=== PATIENT | male | born 1965 | race Caucasian/White ===

== ENCOUNTER 2020-06-04 10:10 | Outpatient (REF) | payer BC, SELFPAY ==
--- NOTE | 2020-06-04 10:15 | XR_ITS ---
EXAMINATION: XR SHOULDER, RIGHT CLINICAL INFORMATION: Right shoulder pain COMPARISON: None TECHNIQUE: Right shoulder is imaged in 3 views. FINDINGS: There is no fracture, dislocation, destructive process. There are degenerative changes acromioclavicular joint. The acromioclavicular alignment is normal. The glenohumeral joint is unremarkable. There is calcification adjacent to the greater tuberosity consistent with calcific tendinosis distal rotator cuff, likely infraspinatus. XR/XR shoulder RT min 2V IMPRESSION: 1. Calcific tendinosis rotator cuff. 2. Degenerative changes acromioclavicular joint.
== END 2020-06-04 10:11 | disposition home or self-care (01) ==
LOC: HO.HMGCX 10:10
PROVIDERS: PCP Nurse Practitioner Family; Visit Provider Nurse Practitioner Family
DX: M19.021 Primary osteoarthritis, right elbow (principal)
CPT/HCPCS: 73030

== ENCOUNTER 2020-06-22 07:48 | Outpatient (REF) | payer BC, SELFPAY ==
--- NOTE | ~2020-06-22 | XR_ITS ---
EXAMINATION: XR ELBOW, RIGHT CLINICAL INFORMATION: Pain COMPARISON: None TECHNIQUE: AP, lateral, and oblique views of the right elbow. FINDINGS: No definite acute fracture or dislocation is evident. There is evidence of an old radial head fracture. There is also noted to be a large 1.9 x 1.0 bony density about the anterior elbow joint with adjacent marginal spurring of the joint. This is likely sequela of fracture such as traumatic solitary joint synovial osteochondroma. XR/XR elbow RT min 3V IMPRESSION: No acute fracture or dislocation of the right elbow. Appearance of posttraumatic changes.
== END 2020-06-22 07:49 | disposition home or self-care (01) ==
LOC: HO.HOSX 07:48
PROVIDERS: PCP Nurse Practitioner Family; Visit Provider Orthopaedic Surgery
DX: M89.8X1 Other specified disorders of bone, shoulder (principal); M54.12 Radiculopathy, cervical region; M19.021 Primary osteoarthritis, right elbow
CPT/HCPCS: 73080

== ENCOUNTER → 2020-06-28 08:01 | Outpatient (BNVA) | payer BC, SELFPAY | PROVIDERS: PCP Nurse Practitioner Family; Visit Provider Anesthesiology ==

== ENCOUNTER 2020-07-06 08:44 | Outpatient (RCR) | payer BC, SELFPAY | END 2020-09-17 16:12 | disposition other institution (70) | LOC: HO.OT 08:44 | PROVIDERS: PCP Nurse Practitioner Family; Visit Provider Anesthesiology | DX: M19.021 Primary osteoarthritis, right elbow (principal) | CPT/HCPCS: 97014; 97167 ==

== ENCOUNTER 2024-07-04 08:31 | Outpatient (AMB) | payer BC, SELFPAY ==
--- NOTE | 2024-07-04 09:01 | AM.OFFWIN_ITS ---
Intake Vital Signs 07/04/24 09:03 Height 5 ft 7 in Weight 172 lb BMI 26.9 BP 136/90 H Blood Pressure Location Lt brachial Position Sitting Pulse 74 Pulse Source Pulse Oximeter Pulse Oximetry (%) 94 Oxygen Delivery Method Room Air Intake Visit Reasons: EP Boil back side Intake Note: Patient here for boil on back that has been present for about 1 week. Patient Tobacco Use Status: Former Tobacco user Allergies No Known Allergies Allergy (Verified 07/04/24 09:04) Do you need a note to return to daycare/school/sports/work: No HPI HPI Comments History of Present Illness Details History of Present Illness - The patient is a 59 year old male pres enting with a boil on his lower left buttock - Present for nearly a week, this boil i s painful and has not drained despite attempts with water soaking. - Approximately a year and a half ago, t he patient had a similar incident in the same region, which required two rounds of Keflex for resolution. - The patient emphasizes no known histor y of MRSA and desires antibiotic treatment for quicker resolution of the current boil. - He refuses I&D Physical Exam General: Cooperative, healthy appearing, comfortable, no acute distress and well developed Orientation: Patient oriented x3 Limitations: No limitations Head: Normal to inspection Ears: Hearing grossly normal bilaterally Nose: Normal Nxternal nose present Face and sinus: ormal facial exam Eyes: Appearance normal, both eyes and all related structures Neck: Normal visual inspection and Yes full ROM Respiratory: Normal respiratory effort and able to speak in complete sentences. Skin: 0.50 cm round fluctuant, erythematous boil, ttp and warm Neuro: Patient oriented x3 Extremities: Normal to inspection [facility] Medical History Hypertension Tendonitis Social History Patient Tobacco Use Status: Former Tobacco user Current occupational status: employed Current occupation: [employer] - Right Handed Review of Systems Const All systems reviewed & are unremarkable except as noted in HPI and below Physical Exam Vital Signs: Last Vital Signs Pulse 74 07/04/24 09:03 BP 136/90 H 07/04/24 09:03 Pulse Ox 94 07/04/24 09:03 Oxygen Delivery Method Room Air 07/04/24 09:03 BMI result Body Mass Index 26.9 Assessment & Plan Assessment & Plan (1) Boil of buttock: Code(s): L02.32 - Furuncle of buttock Plan: The primary treatment for the cutaneous abscess involves initiating a 7 to 10- day course of Keflex. The patient responded well to Keflex previously, and they have been instructed to monitor symptoms. If significant improvement is noted after 7 days, the treatment may be discontinued; otherwise, the full prescribed 10-day antibiotic course should be completed to ensure resolution. Patient needed 2 rounds of (Keflex both times) antibiotics the last time he had this happen, per our notes. This plan is designed to relieve symptoms and prevent further complications. No procedural intervention was performed, as the patient refused drainage. Patient was informed and verbally consented to the use of an ambient scribe for clinic note documentation during this visit. Medications: New cephalexin 500 mg PO Q6H 10 days 40 caps 0RF Coding Level of Care Code Est Pt Level 3 (55099) Diagnoses Boil of buttock L02.32
[2024-07-04 09:03] VITALS: BP 136/90; PULSE 74; O2SAT 94; BMI 26.9
== END 2024-07-04 09:24 | disposition home or self-care (01) ==
PROVIDERS: PCP Nurse Practitioner Family; Visit Provider Physician Assistant
DX: L02.32 Furuncle of buttock (principal)